=== PATIENT | female | born 1950 | race Caucasian/White ===

== ENCOUNTER → 2023-10-03 18:38 | Outpatient (REF) | payer MEDICARE, OTHER, SELFPAY | LOC: WDC 18:38 | PROVIDERS: ATTENDING PHYSICIAN Nurse Practitioner Adult Health | DX: Z12.31 Encounter for screening mammogram for malignant neoplasm of breast (principal) | CPT/HCPCS: 77063; 77067 ==

== ENCOUNTER → 2024-01-19 08:01 | Outpatient (REF) | payer MEDICARE, OTHER, SELFPAY | LOC: RAD 08:01 | PROVIDERS: ATTENDING PHYSICIAN Nurse Practitioner Adult Health | DX: E55.9 Vitamin D deficiency, unspecified (principal); M85.88 Other specified disorders of bone density and structure, other site | CPT/HCPCS: 77080 ==

== ENCOUNTER → 2024-01-25 08:32 | Outpatient (REF) | payer MEDICARE, OTHER, SELFPAY ==
[2024-01-25 09:21] LABS: % Basophils 0.9 % (0-2); % Eosinophils 3.6 % (0-6); % Lymphocytes 34.4 % (20.5-51.1); % Monocytes 14.2 % (1.7-9.3); % Neutrophils 46.9 % (42.2-75.2); Absolute Eosinophils 0.2 10^3/uL (0-0.7); Absolute Lymphocytes 1.5 10^3/uL (1.2-3.4); Absolute Monocytes 0.6 10^3/uL (0.1-0.6); Absolute Neutrophils 2.1 10^3/uL (1.4-6.5); Hematocrit 39.9 % (37.0-47.0); Mean Corp Hgb Conc. 32.6 g/dL (33.0-37.0); Mean Corpuscular Hgb 28.2 pg (27.0-31.0); Mean Corpuscular Volume 86.6 fL (81.0-99.0); Nucleated Red Blood Cells % 0 %; Platelet Count 188 10^3/uL (130-400); Red Blood Cell Count 4.61 10^6/uL (4.20-5.40); Red Cell Dist. Width 14.3 % (11.5-14.5); White Blood Cell Count 4.5 10^3/uL (4.8-10.8)
[2024-01-25 10:31] LABS: Vitamin D, 25-OH*** 67.7 ng/mL (30-80)
[2024-01-25 10:34] LABS: ALT (SGPT) 26 U/L (0-35); AST (SGOT) 34 U/L (14-36); Albumin 4.6 g/dl (3.5-5.0); Alkaline Phosphatase 75 U/L (38-126); Blood Urea Nitrogen 17 mg/dl (7-17); Calcium 9.7 mg/dl (8.4-10.2); Carbon Dioxide 29 mmol/L (22-30); Chloride 105 mmol/L (98-107); Glucose 95 mg/dl (70-99); HDL Cholesterol 52 mg/dl; LDL Cholesterol, Calculated 113 mg/dl; Potassium 4.9 mmol/L (3.5-5.1); Sodium 141 mmol/L (135-145); Total Bilirubin 0.4 mg/dl (0.2-1.3); Total Cholesterol 184 mg/dl (50-199); Triglyceride 97 mg/dl (10-149); Very Low Density Lipoprotein 19 mg/dl (0-30); eGFR > 60.00
[2024-01-25 11:20] LABS: Folate > 20.0 ng/ml (2.76-20); Vitamin B12 588 pg/ml (239-931)
[2024-01-25 11:30] LABS: Glycohemoglobin (HgbA1c) 6.1 % (4.0-5.6)
== END ==
LOC: REG 08:32
PROVIDERS: ATTENDING PHYSICIAN Nurse Practitioner Adult Health
DX: Z00.00 Encounter for general adult medical examination without abnormal findings (principal); R73.03 Prediabetes; Z13.29 Encounter for screening for other suspected endocrine disorder; E78.00 Pure hypercholesterolemia, unspecified; E55.9 Vitamin D deficiency, unspecified; Z79.899 Other long term (current) drug therapy; E53.8 Deficiency of other specified B group vitamins
CPT/HCPCS: 36415; 80053; 80061; 82306; 82607; 82746; 83036; 84443; 85025

== ENCOUNTER → 2024-10-22 12:38 | Outpatient (REF) | payer MEDICARE, OTHER, SELFPAY | LOC: WDC 12:38 | PROVIDERS: ATTENDING PHYSICIAN Nurse Practitioner Adult Health | DX: Z12.31 Encounter for screening mammogram for malignant neoplasm of breast (principal) | CPT/HCPCS: 77063; 77067 ==

== ENCOUNTER 2024-12-29 18:07 | Emergency (ER) | payer MEDICARE, OTHER, SELFPAY ==
[2024-12-29 18:07] VITALS: BMI 24.6
[2024-12-29 18:10] VITALS: BP 124/62
--- NOTE | 2024-12-29 20:33 | ED.SKININJ ---
HPI-Injury
General
Chief Complaint: Bite
Source: patient
Exam Limitations: none
Time Seen by Provider: 12/29/24 20:22
History of Present Illness-Injury
Initial Injury comments:
74yoF with a history of hyperlipidemia, GERD, and seasonal allergies presenting for evaluation of an insect bite to her left ankle. She felt a sting to her left posterior ankle 2 nights ago. She reports gradually worsening redness and swelling to
the ankle. Her daughter is a nurse practitioner and she was concerned for an infection so told her to go to the ED. She denies any fevers or chills. She does have a prior history of a left ankle surgery many years ago in which 'the bone was
carved out' due to a tendon issue. She denies having any hardware to the ankle joint.
Phy Exam
General Physical Exam
General Presentation: well appearing and no apparent distress
General Skin: warm and dry
General Habitus: normal
General Mental: alert
ENT Exam
ENT Exam: normocephalic
Neurological Exam
Neurological Exam: alert
Josue Coma Scale
Eye Opening: Spontaneous
Verbal Response: Oriented
Motor Response: Obeys Commands
GCS Total Score: 15
Skin Exam
Skin Exam: warm/dry and other (There are vesicles noted to the posterior aspect of the L ankle with surrounding erythema/warmth primarily to the lateral aspect of the ankle. ROM intact. No fluctuance, drainage, crepitus, or red streaking proximally.
2+ DP pulse. )
Psychiatric Exam
Psychiatric Exam: normal mood/affect
Course
Orders/Labs/Results
Orders:
Orders
12/29/24 20:34
Cephalexin Monohydrate [Keflex] 500 mg PO NOW STA
Dexamethasone [Decadron] 10 mg PO NOW STA
Vital Signs
Initial and Last Documented VS:
Initial Vital Signs
Temp Pulse Resp BP Pulse Ox
98.4 F 85 16 124/62 100
12/29/24 18:10 12/29/24 18:10 12/29/24 18:10 12/29/24 18:10 12/29/24 18:10
Last Documented Vital Signs
Temp Pulse Resp BP Pulse Ox
98.4 F 85 16 124/62 100
12/29/24 18:10 12/29/24 18:10 12/29/24 18:10 12/29/24 18:10 12/29/24 20:34
MDM/Problems Addressed
Differential Diagnosis Includes:
74yoF here with an insect bite to the L ankle 2 days ago. Now with spreading redness/pain. Denies fevers and vitals are normal. She is well appearing in no distress. There are vesicular lesions to the back of the ankle with surrounding
erythema/warmth. No evidence of abscess or NSTI. Differential diagnosis includes: contact dermatitis, localized reaction to insect bite, cellulitis
No indication for labs/imaging at this time. Will give dose of Decadron for presumed contact dermatitis. She was also started on a course of Keflex. Advised f/u with PCP and ED return precautions reviewed. Patient discharged in stable condition.
*Pulse Oximetry
SaO2: 100
Oxygen Mode of Delivery: Room air
Patient hypoxic: no (100%)
*Critical Care Note
Total Time (30-74mins, 75-104mins- exclusive of procedures): Not Applicable
ED Attending Note
-
Portions of this chart may have been created with voice recognition software.� Occasional wrong word or��sound alike� substitutions may have occurred due to the inherent limitations of voice recognition software.
Discharge Plan
Departure
Patient Disposition: Home (Routine Discharge)
Date of Disposition: 12/29/24
Time of Disposition: 20:35
Patient with high blood pressure during this ER visit?: No
Discharge Problem:
Infected insect bite of left ankle
Instructions: Insect Bites and Stings (DC)
Prescriptions:
New
cephalexin 500 mg capsule
500 mg PO Q6H 7 Days Qty: 27 0RF
No Action
tramadol 50 mg tablet
50 mg PO Q8H PRN (Reason: Pain) Qty: 14 0RF
Activity Restrictions/Additional Instructions:
Take antibiotics as prescribed. You may apply hydrocortisone cream to any itchy areas.
Please follow-up with your family doctor in 2 to 3 days. Return to the ER with any worsening symptoms including fevers, chills, or spreading redness.
Interventions
Interventions:
*Risk Screen - Suicide Last Done: 12/29/24 18:10
*General Assessment Last Done: 12/29/24 18:10
*Neglect/Abuse Screening Last Done: 12/29/24 20:35
*ED- Fall Risk Assessment Last Done: 12/29/24 20:35
*ED COVID-19 Vaccine History Last Done: 12/29/24 20:35
*Nursing Disposition Last Done: 12/29/24 21:00
ED-Skin Assessment Last Done: 12/29/24 20:34
Discharge Date and Time
Discharge Date/Time: 12/29/24 21:06
Print Language: TRINIDADIAN
[2024-12-29] MEDS: KEFLEX 500 MG PO (20:46)
[2024-12-29] MEDS: DECADRON 10 MG PO (20:46)
== END 2024-12-29 21:06 | disposition home or self-care (01) ==
LOC: EMR 18:07
PROVIDERS: EMERGENCY PHYSICIAN Student in an Organized Health Care Education/Training Program; FAMILY PHYSICIAN Nurse Practitioner Adult Health
DX: S90.562A Insect bite (nonvenomous), left ankle, initial encounter (principal); L08.9 Local infection of the skin and subcutaneous tissue, unspecified; W57.XXXA Bitten or stung by nonvenomous insect and other nonvenomous arthropods, initial encounter; E78.5 Hyperlipidemia, unspecified
CPT/HCPCS: 99283